=== PATIENT | female | born 1995 | race Caucasian/White ===

== ENCOUNTER 2017-10-10 11:09 | Emergency (ER) | payer OTHER ==
[~2017-10-10] VITALS: Wt 66.5 kg
--- NOTE | 2017-10-10 11:58 | ERD ---
ER Documentation Chief Complaint Chief Complaint HEAVY VAG BLEEDING WITH CLOTS, PT ON MONTHLY PERIOD HPI 22-year-old female, presents to the emergency department, complaining of heavy vaginal bleeding, 4 weeks ago her IUD was removed. Currently, She is using approximately 4 pads per day with mild clots. The symptoms are associated with mild intermittent crampy pain, 3/10. No fever or chills, no dizziness, no lightheadedness, no abdominal pain, no dysuria. ROS All systems reviewed and are negative except as per history of present illness. Medications Home Meds Active Scripts Ibuprofen* (Motrin*) 600 Mg Tab, 600 MG PO Q8, #30 TAB Prov:DANIEL SPENCE MD 10/10/17 Physical Exam Vitals Vital Signs Date Time Temp Pulse Resp B/P Pulse Ox O2 Delivery O2 Flow Rate FiO2 10/10/17 11:13 97.3 84 18 126/76 100 Physical Exam Patient is in no acute distress, vital signs stable. Alert and fully oriented. EYES: PERRLA, EOMI, Sclera and conjunctiva appear normal. EARS: Canals clear, tympanic membranes WNL THROAT: Normal oropharynx. NECK: Supple, No lymphadenopathy. Full ROM without pain or tenderness. HEART: RRR, no rubs, murmurs, clicks or gallops. LUNGS: Clear to auscultation. ABDOMEN: Soft, non-tender without masses or hepatosplenomegaly. EXTREMITIES: No edema bilaterally. BACK: Full ROM, no deformity, normal back exam NEURO: Cranial nerves grossly intact, no motor or sensory deficit Procedures/MDM 25-year-old female, status post IUD removal 4 weeks ago, presents to the emergency department concerned about heavy vaginal bleeding. Vital signs stable , Physical exam unremarkable. Differential diagnosis include but not limited to : , threatened , dysfunctional uterine bleeding. Low suspicion for malignancy. Pertinent Data: test: Negative Physical examination and clinical presentation consistent most likely with dysmenorrhea, changes in the menses most likely related to the recent removal of the IUD. During the ED course the patient remained stable, no new complaints. Results and clinical impression discussed with patient who agrees with management. The patient is stable to be treated outpatient and will be discharged home with a Rx for ibuprofen, some side effects of prescribed medications (headache, rash, nausea, vomiting, diarrhea, drowsiness, habituation , bleeding, hypertension, interactions with other medications) were reviewed. The patient was instructed to follow up with the primary care provider in the next 48h. If symptoms persist, worsen or new symptoms develop, then patient should return to the ED immediately. Instructions explained and given directly by me to the patient in Swedish with acknowledgment and demonstrated understanding. Disclaimer: Inadvertent spelling and grammatical errors are likely due to EHR/ dictation software use and do not reflect on the overall quality of patient care. Also, please note that the electronic time recorded on this note does not necessarily reflect the actual time of the patient encounter. Departure Diagnosis: Primary Impression: Dysmenorrhea Condition: Stable Additional Instructions: Call your primary care doctor TOMORROW for an appointment during the next 1-2 days. See the doctor sooner or return here if your condition worsens before your appointment time. Thank you very much for allowing us to participate in your care. Your health and safety is our top priority at [facility]. Have prescriptions filled and follow precisely the directions on the label. Follow-up with primary care provider during the next 4 days and bring all the information and medications prescribed. If illness has not improved in 2 days, then make an appointment with primary care provider. If the provider is unavailable, return to the Emergency Department immediately. DANIEL SPENCE MD Oct 10, 2017 11:58
[2017-10-10] MEDS ORDERED: IBUP-1542 PO (13:55)
== END 2017-10-10 14:08 | disposition home or self-care (01) ==
LOC: FTE 11:09
DX: N94.6 Dysmenorrhea, unspecified (principal)
CPT/HCPCS: 99283

== ENCOUNTER 2018-03-15 03:48 | Emergency (ER) | END 2018-03-15 06:17 | disposition home or self-care (01) ==

== ENCOUNTER 2018-11-18 10:49 | Emergency (ER) | payer OTHER ==
[~2018-11-18] VITALS: Ht 160 cm; Wt 68.8 kg
[~2018-11-18 10:49] MED LIST: CEPH-443 PO; HYDR-4011 PO; IBUP-1542 PO; PHEN-717 PO
[2018-11-18 10:55] VITALS: Ht 160 cm; Wt 68.8 kg
[2018-11-18] MEDS ORDERED: SOD CHLORIDE 0.9% 1,000 ML IV STA (12:11)
--- NOTE | 2018-11-18 12:41 | ERD ---
ER Documentation Chief Complaint Chief Complaint sent by ob for abdominal pain, 17 weeks HPI This is a 23-year-old female, who presents ED at roughly 17 weeks sent from OB for evaluation. Patient states that she was recently treated for a UTI and she still continues tO HAVE A strong odorous smell TO HER URINE. Patient states she was seen at her doctor's office earlier today and she had a mild fever there but she no longer has a fever here. Patient admits to some back soreness. Patient states that she has been under a lot of stress lately as her work has recently cut her hours and she is concerned about money and being able to make payments. Denies nausea, vomiting, hemoptysis, diarrhea, constipation, melena, hematochezia, vaginal pain, vaginal discharge, and all other symptoms. Denies any current abdominal pain or pelvic discomfort. ROS All systems reviewed and are negative except as per history of present illness. Medications Home Meds Active Scripts Nitrofurantoin Monohyd Macrocr* (Macrobid*) 100 Mg Capsr, 100 MG PO HS for 7 Day s, CAP Prov:CAMI MANRIQUE PA-C 11/18/18 Phenazopyridine Hcl* (Phenazopyridine Hcl*) 200 Mg Tablet, 200 MG PO TID, #6 TAB Prov:IDALIA CHAVIS NP 03/15/18 Cephalexin* (Keflex*) 500 Mg Capsule, 500 MG PO QID for 10 Days, CAP Prov:IDALIA CHAVIS [employer] 03/15/18 Hydrocodone/Acetaminophen ([place] 5-325 Tablet) 1 Each Tablet, 1 TAB PO Q6H PRN for SEVERE PAIN LEVEL 7-10, #20 TAB Prov:IDALIA CHAVIS [employer] 03/15/18 Ibuprofen* (Motrin*) 600 Mg Tab, 600 MG PO Q6H PRN for PAIN AND OR ELEVATED TEMP, #30 TAB Prov:IDALIA CHAVIS [employer] 03/15/18 Ibuprofen* (Motrin*) 600 Mg Tab, 600 MG PO Q8, #30 TAB Prov:DANIEL SPENCE MD 10/10/17 Allergies Allergies: Coded Allergies: No Known Allergy (Unverified , 11/18/18) PMhx/Soc Medical and Surgical Hx: pt denies Medical Hx, pt denies Surgical Hx Hx Alcohol Use: No Hx Substance Use: No Hx Tobacco Use: No Smoking Status: Never smoker FmHx Family History: No diabetes Physical Exam Vitals Vital Signs Date Temp Pulse Resp B/P (MAP) Pulse Ox O2 O2 Flow FiO2 Time Delivery Rate 11/18/18 97.9 87 18 122/63 96 10:55 (82) Physical Exam Const: No acute distress Head: Atraumatic Eyes: Normal Conjunctiva ENT: Normal External Ears, Nose and Mouth. Neck: Full range of motion. No meningismus. Resp: Clear to auscultation bilaterally Cardio: Regular rate and rhythm, no murmurs Abd: Soft, technique, no peritoneal signs, no rigidity, no surgical abdomen, bowel sounds present all 4 quadrants, nontender light deep palpation all 4 quadrants, no suprapubic tenderness Skin: No petechiae or rashes Back: No midline or flank tenderness Ext: No cyanosis, or edema Neur: Awake and alert Psych: Normal Mood and Affect Result Diagram: 11/18/18 1225 11/18/18 1225 Results 24 hrs Laboratory Tests Test 11/18/18 12:25 White Blood Count 7.9 10^3/ul Red Blood Count 4.34 10^6/ul Hemoglobin 12.2 g/dl Hematocrit 35.6 % Mean Corpuscular Volume 82.0 fl Mean Corpuscular Hemoglobin 28.1 pg Mean Corpuscular Hemoglobin Concent 34.3 g/dl Red Cell Distribution Width 12.9 % Platelet Count 222 10^3/UL Mean Platelet Volume 10.0 fl Immature Granulocytes % 0.500 % Neutrophils % 67.0 % Lymphocytes % 24.7 % Monocytes % 6.9 % Eosinophils % 0.5 % Basophils % 0.4 % Nucleated Red Blood Cells % 0.0 /100WBC Immature Granulocytes # 0.040 10^3/ul Neutrophils # 5.3 10^3/ul Lymphocytes # 2.0 10^3/ul Monocytes # 0.5 10^3/ul Eosinophils # 0.0 10^3/ul Basophils # 0.0 10^3/ul Nucleated Red Blood Cells # 0.0 10^3/ul Prothrombin Time 11.5 Sec Prothrombin Time Ratio 0.9 INR International Normalized Ratio 0.83 Activated Partial Thromboplast Time 34.4 Sec Urine Color YELLOW Urine Clarity SLIGHTLY CLOUDY Urine pH 6.0 Urine Specific [place] 1.006 Urine Ketones TRACE mg/dL Urine Nitrite POSITIVE mg/dL Urine Bilirubin NEGATIVE mg/dL Urine Urobilinogen NEGATIVE mg/dL Urine Leukocyte Esterase TRACE Gerard/ul Urine Microscopic RBC 0 /HPF Urine Microscopic WBC 6 /HPF Urine Amorphous Crystals MODERATE /HPF Urine Bacteria MODERATE /HPF Urine Hemoglobin 1+ mg/dL Urine Glucose NEGATIVE mg/dL Urine Total Protein NEGATIVE mg/dl Sodium Level 140 mmol/L Potassium Level 3.8 mmol/L Chloride Level 106 mmol/L Carbon Dioxide Level 22 mmol/L Anion Gap 12 Blood Urea Nitrogen 8 mg/dl Creatinine 0.33 mg/dl Est Glomerular Filtrat Rate mL/min > 60 mL/min Glucose Level 92 mg/dl Calcium Level 9.6 mg/dl Total Bilirubin 0.2 mg/dl Direct Bilirubin 0.00 mg/dl Indirect Bilirubin 0.2 mg/dl Aspartate Amino Transf (AST/SGOT) 31 IU/L Alanine Aminotransferase (ALT/SGPT) 39 IU/L Alkaline Phosphatase 71 IU/L Total Protein 7.5 g/dl Albumin 4.0 g/dl Globulin 3.50 g/dl Albumin/Globulin Ratio 1.14 Beta HCG, Quantitative 92662.0 mIU/ml Current Medications Medications Dose Sig/Jie Start Time Status Last (Trade) Ordered Route PRN Stop Time Admin Dose Reason Admin Sodium 1,000 ml @ Q1H STAT 11/18/18 DC 11/18/18 Chloride 1,000 mls/hr IV 12:11 11/18/18 12:27 13:10 Ceftriaxone 50 ml @ ONCE ONCE 11/18/18 DC 11/18/18 Sodium 100 mls/hr IVPB 14:00 11/18/18 14:27 14:29 Procedures/MDM EKG, MONITORS, & DIAGNOSTIC IMAGING: [place] [address] Radiology Main Line: [phone] DIAGNOSTIC IMAGING REPORT Patient: MARIA MONTANO : 1995 Age: 23 Sex: F MR #: [id number] DOS: 11/18/18 1211 Ordering MD: CAMI MANRIQUE PA-C Location: [facility]TE Room/Bed: PROCEDURE: US OB. CLINICAL INDICATION: Size and dates TECHNIQUE: Multiple sonographic images of the pelvis and gravid uterus were obtained. The images were reviewed on a PACS workstation. COMPARISON: No prior studies are available for comparison. FINDINGS: Gestation: Single live intrauterine gestation. Cardiac activity: 137 beats per minute. Presentation: Vertex. Placenta: Location: posterior Appearance: No previa or abruption. MVP = 5.3 cm Measurements: BPD = 4.3 cm, 18 weeks and 6 days HC = 15.2 cm, 18 weeks and 2 days AC = 13.1 cm, 18 weeks and 4 days FL = 2.7 cm, 18 weeks and 1 day Gestational Age: AUA estimated gestational age: 18 weeks 3 days AUA estimated date of delivery: 04/18/19 The EFW = 238 g. The four-chamber heart, intracranial contents, stomach, kidneys, bladder, nose and lips, and cord insertion are visualized. RPTAT: AA IMPRESSION: Single live intrauterine gestation of 18 weeks 3 days by ultrasound criteria. .Bill Mueller MD, MD Date Time Electronically viewed and signed by .Bill Mueller MD, MD on 11/18/2018 13:21 .S/ CC: CAMI MANRIQUE PA-C [id number] LAB INTERPRETATION: CBC shows no evidence of hemorrhage or infection Chemistry shows no evidence of significant electrolyte abnormalities or renal insufficiency Liver function test shows no evidence of acute biliary or hepatic dysfunction Coagulation study showed no concerning coagulopathy [facility] [id number] Urinalysis remarkable for 6 WBC, trace leukocyte esterase and positive nitrite Blood type O+ Cardiac biomarkers show no evidence of acute myocardial injury or coronary ischemia BNP shows no evidence of acute congestive heart failure and/or volume overload ER COURSE: The patient was given IV normal saline The medication was well tolerated and the patient reports improvement in symptom s. The patient was stable throughout ED course. I kept the patient and/or family informed of laboratory and diagnostic imaging results throughout the emergency room course. The patient was promptly evaluated and a treatment plan was devised based on H&P and other data. This plan was discussed with the patient who agreed and had no further questions or concerns prior to discharge. MEDICAL DECISION MAKING: This is a 23-year-old female, who presents ED at roughly 17 weeks sent from OB for evaluation. Patient states that she was recently treated for a UTI and she still continues tO HAVE A strong odorous smell TO HER URINE. Patient states she was seen at her doctor's office earlier today and she had a mild fever there but she no longer has a fever here. Patient admits to some back soreness. Ultrasound was ordered to rule out placenta previa, placental abruption, premature rupture of brains and to check heart tones fetus. Patient is blood type O+ and does not require any RhoGam. CBC is unremarkable with no signs of anemia or hemorrhage. Urinalysis does show WBC, trace leukocyte esterase and positive nitrite. Will proceed to treat patient for UTI. Patient was given 1 g of IV ceftriaxone in the emergency department. There is no evidence of pyelonephritis given that patient has no CVA tenderness, no fevers in the emergency department and no nausea or vomiting. We will also send for urine culture. Patient is hemodynamically stable. Urinalysis is unremarkable. Ultrasound shows a closed competent cervix with no appearance of central previa or abruption. Ultrasound shows a single intrauterine gestation with a heart rate of 137 bpm. Advised patient follow-up with her KINESIOLOGIST specialist in the next 48 hours. At this time there is no KINESIOLOGIST emergency. Return to ED with any worsening symptoms. DISPOSITION PLAN: We discussed follow up with the patient's primary care doctor within 24 to 48 hours. Patient counseled regarding my diagnostic impression and care plan. Prior to discharge all questions answered. Pt agrees with treatment plan and understands strict return precautions. Precautionary instructions provided including instructions to return to the ER if not improving or for any worsening or changing symptoms or concerns. SPECIALIST FOLLOW UP RECOMMENDED: None Patient has been advised to follow up with primary care in 1-2 days. Disclaimer: Inadvertent spelling and grammatical errors are likely due to EHR/dictation software use and do not reflect on the overall quality of patient care. Also, please note that the electronic time recorded on this note does not necessarily reflect the actual time of the patient encounter. Departure Diagnosis: Primary Impression: UTI (urinary tract infection) in in second trimester Condition: Stable Patient Instructions: Adapting to : Second Trimester, Understanding Urinary Tract Infections (UTIs) Referrals: [facility] KINESIOLOGIST REFERRAL LIST Additional Instructions: Patient advised to return to the ED immediately for new or worsening symptoms. Patient advised to follow up with primary care provider in the next 24-48 hours. Patient verbalized understanding and agrees with treatment plan and course of action. If patient has no primary care they may follow up with one of the community clinics listed on the following page or one of the options listed below [facility] [address] [place] [id number] or [facility] [id number] [place] [id number] or [facility] [address] [place] [address] CAMI MANRIQUE PA-C Nov 18, 2018 12:41
[2018-11-18] MEDS ORDERED: CEFTRIAXONE 1 GM/50 ML (PMX) 50 ML IVPB ONE (14:00)
[2018-11-18] MEDS ORDERED: NITR-58 PO (14:46)
[2018-11-18 15:05] VITALS: BP 103/59; PULSE 76
== END 2018-11-18 15:06 | disposition home or self-care (01) ==
LOC: FTE 10:49
DX: O23.42 Unspecified infection of urinary tract in pregnancy, second trimester (principal); R10.9 Unspecified abdominal pain; Z3A.18 18 weeks gestation of pregnancy
CPT/HCPCS: 36415; 76805; 80053; 81001; 84702; 85025; 85610; 85730; 86900; 86901; 87086; 96374; J0696; J7030; Z7502

== ENCOUNTER 2019-02-23 20:35 | Outpatient (CLI) | payer OTHER ==
[~2019-02-23] VITALS: Ht 154.9 cm; Wt 76.8 kg
[~2019-02-23 20:35] MED LIST changes: +NITR-58 PO
[2019-02-23] MEDS ORDERED: PREN-93 PO (21:15)
[2019-02-23 21:16] VITALS: Ht 154.9 cm; Wt 76.8 kg
[2019-02-23 21:18] VITALS: BP 110/55; PULSE 92; RESP 20
--- NOTE | 2019-02-23 22:53 | PN ---
Triage Information Date/Time February 23, 2019 Reason for visit: Uterine contractions Weeks of Gestation 32w 4d /Para 2/1 Diabetes: none Hypertention: none Additional information Pt feels some lower abdominal and back pain about every 30 minutes since 1730. No bleeding or leaking. PMHx: Cholestasis of ; on Actigall BID. POBHx: at term, 9# 8 oz. PSHx: none. NKDA. Objective Vital Signs Date Temp Pulse Resp B/P (MAP) Pulse Ox O2 O2 Flow FiO2 Time Delivery Rate 02/23/19 98.1 92 20 110/55 Room Air 21:18 (73) Heart Rate: 130's Heart Rate Comments Accels to 160 bpm. No decels. Contractions: >10 Minutes Apart (q 20 to 30 minutes, mild) Results/Medications Results 24 hrs Laboratory Tests Test 02/23/19 21:00 Urine Color YELLOW Urine Clarity CLOUDY A Urine pH 7.0 Urine Specific Bertha 1.013 Urine Ketones NEGATIVE Urine Nitrite POSITIVE A Urine Bilirubin NEGATIVE Urine Urobilinogen NEGATIVE Urine Leukocyte Esterase 2+ H Urine Microscopic RBC > 182 H Urine Microscopic WBC 108 H Urine Squamous Epithelial Cells FEW Urine Bacteria MODERATE Urine Mucus MODERATE Urine Hemoglobin 3+ H Urine Glucose NEGATIVE Urine Total Protein 2+ H Imaging Results Cervical length 4.1 cm and closed. Disposition: Discharge Assessment/Plan A: IUP at 32w 4d. False labor. UTI. Cholestasis. P: P.O. hydration. Pt may get one dose of Macrobid while here then will be sent home with a Rx for 100 BID x 7 days. PTL precautions reviewed. Pt to continue her Actigall and may increase to TID x 1 week. ANATOLY ROQUE MD Feb 23, 2019 22:53
[2019-02-23] MEDS ORDERED: NITROFURANTOIN (SR) 100 MG CAP PO ONE (23:00)
--- NOTE | 2019-02-23 23:19 | TRIAGE ---
OB Triage Datetime Report Generated by CPN: 02/23/2019 23:19 Datetime: 02/23/2019 23:05 Stage of : OB Triage Datetime: 02/23/2019 22:45 Stage of : OB Triage Datetime: 02/23/2019 22:30 Stage of : OB Triage Labor Evaluation Frequency: Occasional Monitor Mode: External Resting Tone [place]: Relaxed Heart Rate FHR Baseline Rate: 125 Monitor Mode: External US Variability: Moderate 6-25 bpm Accelerations: 15X15 Decelerations: None Category: Category I Pain Assessment Pain Scale: 3 Pain Presence: Intermittent Pain Type: Contraction Pain Location: Abdomen Pain Relief Measures: Comfort Measures Datetime: 02/23/2019 21:23 Stage of : OB Triage Datetime: 02/23/2019 20:56 Stage of : OB Triage Assessment Type: Triage Maternal Assessment Level of Consciousness: Fully Conscious DTR's/Clonus: DTRs 2+; No Clonus Headache: Denies Blurred Vision: No Respiratory Effort: Unlabored; Regular Rhythm; Equal Expansion Breath Sounds, Left: Clear and Equal Breath Sounds, Right: Clear and Equal Nausea/Vomiting: Denies RUQ Epigastric Pain: Denies Lower Extremities Edema: None Degree: None Upper Extremities Edema: None Degree: None Facial Edema: None Temperature Route: Oral Fall Risk Assessment History of Falling: (0) No Secondary Diagnosis: (0) No Ambulatory Aid: (0) Bedrest/Nurse Assist IV Therapy: (0) No Gait: (0) Normal/Bedrest/Immobile Mental Status: (0) Oriented to Own Ability Fall Score: 0 Fall Risk Score Definition: No Risk: No action required Pain Assessment Pain Scale: 3 Pain Presence: Intermittent Pain Type: Cramping; Contraction; Ache Pain Location: Abdomen; Back Pain Relief Measures: Comfort Measures Datetime: 02/23/2019 20:45 Time of Arrival: 02/23/2019 20:30 EGA: 32.4 Arrived By: Wheelchair Arrived From: Home Chief Complaint: Back pain _ lower abdominal pain Movement: Present Contractions: Irregular Time Contractions Began: 02/23/2019 17:30 Contractions: [id number] Rupture of Membranes: Denies Vaginal Bleeding: None Vaginal Discharge: Denies Abdominal Trauma: Not Applicable Patient Complaints: Contractions; Cramping; Back Pain Time Provider Notified: 02/23/2019 21:23 Provider Notified: W[place]o Initial Plan: VS, EFM, UA, Urine culture, CL
== END 2019-02-23 23:15 | disposition home or self-care (01) ==
LOC: OBT 20:35 → L-D 20:36 → OBT 22:30 → L-D 22:30 → OBT 23:15
PROVIDERS: ATTEND Specialist
DX: O47.03 False labor before 37 completed weeks of gestation, third trimester (principal); O23.43 Unspecified infection of urinary tract in pregnancy, third trimester; O26.613 Liver and biliary tract disorders in pregnancy, third trimester; K83.1 Obstruction of bile duct; Z3A.32 32 weeks gestation of pregnancy
CPT/HCPCS: 76817; 81001; 87086; Z7500; Z7610; G0463

== ENCOUNTER 2019-04-01 09:30 | Inpatient (IN) | payer OTHER ==
[~2019-04-01] VITALS: Ht 152.4 cm; Wt 79.7 kg
[~2019-04-01 09:30] MED LIST changes: -CEPH-443 PO; -HYDR-4011 PO; -IBUP-1542 PO; -PHEN-717 PO; +PREN-93 PO
[2019-04-01] MEDS ORDERED: LIDOCAINE 1% (MPF) 30 ML INJ INJ PRN (10:30)
[2019-04-01] MEDS ORDERED: MISOPROSTOL 200 MCG TAB PR PRN (10:30)
[2019-04-01] MEDS ORDERED: IBUPROFEN 600 MG TAB PO PRN (10:30)
[2019-04-01] MEDS ORDERED: METHYLERGONOVINE 0.2 MG INJ IM PRN (10:30)
[2019-04-01] MEDS ORDERED: OXYTOCIN 30 UNITS/LR 500 ML IV PRN ×2 (10:30→11:30)
[2019-04-01] MEDS ORDERED: OXYTOCIN 30 UNITS/LR 500 ML IV SCH ×2 (10:30)
[2019-04-01] MEDS ORDERED: BUTORPHANOL 2 MG INJ IV PRN ×2 (10:30)
[2019-04-01] MEDS ORDERED: CARBOPROST 250 MCG INJ IM PRN (10:30)
[2019-04-01 10:36] VITALS: BP 126/74; PULSE 85; RESP 17
[2019-04-01] MEDS ORDERED: URSO300C3 PO (10:40)
[2019-04-01] MEDS ORDERED: BETAMET NA PHOS/AC(6 MG/ML) 2 ML INJ SYG IM ONE (11:30)
[2019-04-01] MEDS: LACTATED RINGER'S 1,000 ML IV SCH ×2 (11:43→19:26)
[2019-04-01] MEDS: MISOPROSTOL 50 MCG CAPSULE PO PRN ×3 (11:59→22:43)
[2019-04-01] MEDS: URSODIOL 300 MG CAP PO SCH ×2 (15:13→21:01)
[2019-04-02] MEDS: LACTATED RINGER'S 1,000 ML IV SCH ×3 (02:37→10:25)
[2019-04-02] MEDS: MISOPROSTOL 50 MCG CAPSULE PO PRN (03:32)
--- NOTE | 2019-04-02 09:21 | HP ---
Date/Time of Note Date/Time of Note DATE: 04/02/19 TIME: 09:18 OB - History Hx of Present Free Text/Dictation 24 YO with EDC 04/23/2019 with IUP at 37 weeks. Admitted for IOL due to Cholestasis of . had Cytotec. cervix is now 50% 2 cm. AROM done Care: Good Care Ultrasounds: Normal mid trimester US Obstetrical Complications: Other (cholestasis of ) Medical Complications: None Past Family/Social History * Past Medical, Surgical, Family and Obstetric Histories reviewed from chart. OB Admission Exam Vital Signs Vital Signs Vital Signs Date Temp Pulse Resp B/P (MAP) Pulse Ox O2 O2 Flow FiO2 Time Delivery Rate 04/01/19 97.9 85 17 126/74 Room Air 10:36 (91) Physical Exam HEENT: WNL Heart: Rhythm Normal Lungs: Clear, Equal Abdomen: WNL Extremities: Normal Reflexes: Normal Cervical Dilatation: 2cm Effacement: 50% Station: -2 Last 72 hours Lab Results CBC & BMP 04/01/19 11:40 OB Assessment/Plan Other Assessment: cholestasis of Induction Method: per Misoprostol Protocol YEN TALBERT MD April 02, 2019 09:21
[2019-04-02] MEDS: URSODIOL 300 MG CAP PO SCH ×3 (10:27→21:07)
--- NOTE | 2019-04-02 11:46 | PREAC ---
Date/Time of Note Date/Time of Note DATE: 04/02/19 TIME: 11:46 Anesthesia Eval and Record Evaluation Time Pre-Procedure Interview DATE: 04/02/19 TIME: 11:46 Age 24 Sex female NPO: 8 hrs Preoperative diagnosis labor pain Planned procedure epidural Past Medical History Past Medical History: Includes : Gestational age: (37) Surgery & Anesthesia Issues No known issue Meds Anticoagulation: No Beta Sissy within 24 hr: No Reason Beta Sissy not given: Pt. not on B-Sissy Reported Medications Ursodiol* (Ursodiol*) 300 Mg Capsule, 300 MG PO TID, CAP 04/01/19 Vit No.124/Iron/FA ( Vitamin Tablet) 1 Each Tablet, 1 EACH PO DAILY, TAB 02/23/19 Discontinued Scripts Nitrofurantoin Monohyd Macrocr* (Macrobid*) 100 Mg Capsr, 100 MG PO HS for 7 Days, CAP Prov:CAMI MANRIQUE PA-C 11/18/18 Current Medications Lactated Ringer's 1,000 ml @ 125 mls/hr Q8H IV Last administered on 04/02/19at 10:25; Admin Dose 125 MLS/HR; Start 04/01/19 at 10:15 Butorphanol Tartrate (Stadol) 1 mg Q2H PRN IV .PAIN SCALE 1-5; Start 04/01/19 at 10:30 Butorphanol Tartrate (Stadol) 2 mg Q2H PRN IV .PAIN SCALE 6-10; Start 04/01/19 at 10:30 Lidocaine (Xylocaine 1% (Mpf)) 30 ml ONCE PRN INJ .EPISIOTOMY; Start 04/01/19 at 10:30 Oxytocin/Lactated Ringer's 500 ml @ 500 mls/hr ONCE POST IV ; Start 04/01/19 at 10:30 Oxytocin/Lactated Ringer's 500 ml @ 125 mls/hr POST IV ; Start 04/01/19 at 10:30 Ibuprofen (Motrin) 600 mg ONCE PRN PO .PAIN 1-5; Start 04/01/19 at 10:30 Oxytocin/Lactated Ringer's 500 ml @ 0 mls/hr ONCE PRN IV .VAGINAL BLEEDING; Sta rt 04/01/19 at 10:30 Methylergonovine Maleate (Methergine) 0.2 mg ONCE PRN IM .VAGINAL BLEEDING; Sta rt 04/01/19 at 10:30 Carboprost Tromethamine (Hemabate) 250 mcg ONCE PRN IM .VAGINAL BLEEDING; Start 04/01/19 at 10:30 Misoprostol (Cytotec) 1,000 mcg ONCE PRN [place] .VAGINAL BLEEDING; Start 04/01/19 at 10:30 Misoprostol (Cytotec 50 Mcg Capsule) 50 mcg PRN PRN PO LABOR INDUCTION Last administered on 04/02/19at 03:32; Admin Dose 50 MCG; Start 04/01/19 at 11:30 Oxytocin/Lactated Ringer's 500 ml @ 0 mls/hr FOR INDUCTION PRN IV LABOR INDUCTION; Start 04/01/19 at 11:30 Ursodiol (Actigall) 300 mg TID PO Last administered on 04/02/19at 10:27; Admin Dose 300 MG; Start 04/01/19 at 13:00 Meds reviewed: Yes Allergies Coded Allergies: No Known Allergy (Unverified , 04/01/19) Allergies Reviewed: Yes Labs/Studies Labs Reviewed: Reviewed by anesthesiologist Result Diagram: 04/01/19 1140 test: Positive Studies: ECG (n/a), CXR (n/a) Pre-procedure Exam Last vitals Vital Signs Date Temp Pulse Resp B/P (MAP) Pulse Ox O2 O2 Flow FiO2 Time Delivery Rate 04/01/19 97.9 85 17 126/74 Room Air 10:36 (91) Airway: Adequate mouth opening Mallampati: Mallampati I Teeth: Normal Lung: Normal Heart: Normal ASA Physical Status ASA physical status: 2 Emergency: None Planned Anesthetic Neuraxial: Epidural Planned Pain Management Epidural Pre-operative Attestations Prior to commencing anesthesia and surgery, the patient was re-evaluated, there was verification of: *The patient's identity *The results of appropriate recent lab work and preoperative vital signs *The above evaluation not changing prior to induction *Anesthetic plan, risk benefits, alternative and complications discussed with patient/family; questions answered; patient/family understands, accepts and wishes to proceed. ANTONIO JIMENEZ MD April 02, 2019 11:46
[2019-04-02] MEDS ORDERED: FENTAnyl 2MCG/ML-ROPIV 0.2% 100 ML BAG EPI SCH (12:00)
[2019-04-02] MEDS ORDERED: DIPHENHYDRAMINE 50 MG INJ IV PRN ×2 (12:00→15:00)
[2019-04-02] MEDS ORDERED: NALOXONE (0.4 MG/ML) INJ IV PRN (12:00)
[2019-04-02] MEDS ORDERED: HYDROmorphONE 0.5 MG/0.5 ML SYG IV PRN (12:00)
[2019-04-02] MEDS ORDERED: ONDANSETRON 4 MG INJ IV PRN ×2 (12:00→15:00)
[2019-04-02] MEDS ORDERED: MAGNESIUM SULFATE 4 GM/100 ML 0 ML ONE (13:04)
--- NOTE | 2019-04-02 14:59 | LDN ---
Date/Time of Note Date/Time of Note DATE: 04/02/19 TIME: 14:58 Delivery Summary 24 YO with IUP at 37 weeks. s/p of viable . After delivery of the head the rest of the body delivered easily. I did not apply excessive traction. Placenta delivered spontaneously and intact. evaluation of the placenta confirmed intact placenta. Uterus was firm with cervix closed on exam Placenta Delivered: Spontaneously Meconium: none Episiotomy: No Perineal laceration: 0 Anesthesia type: Epidural Estimated blood loss: 300 Sponge & Needle done & correct: Yes All needle counts correct: Yes Any foreign bodies felt in the: No Delivery Information Sex Infant Sex: male Apgars 1 Minute: 9 5 Minute: 9 Suctioning Nose & mouth suctioned at enio: No Delee suction performed: No Umbilical Cord Umbilical cord with: 3 Vessels Cord presentations: no nuchal cord Cord Blood was obtained: Yes Mother & Baby Disposition Disposition Mom & Baby to Maternity; Good: Yes YEN TALBERT MD April 02, 2019 14:59
[2019-04-02] MEDS ORDERED: WITCH HAZEL/GLYCERIN PAD PR PRN (15:00)
[2019-04-02] MEDS ORDERED: OXYTOCIN 30 UNITS/LR 500 ML IV PRN (15:00)
[2019-04-02] MEDS ORDERED: LANOLIN HPA 1 PKT TOP PRN (15:00)
[2019-04-02] MEDS ORDERED: ONDANSETRON 4 MG TAB PO PRN (15:00)
[2019-04-02] MEDS ORDERED: HYDROCODONE/APAP (5/325) TAB PO PRN ×2 (15:00)
[2019-04-02] MEDS ORDERED: DIBUCAINE 1% 30 GM OINT TOP PRN (15:00)
[2019-04-02] MEDS ORDERED: SENNA/DOCUSATE NA (8.6MG/50MG) TAB PO PRN (15:00)
[2019-04-02] MEDS ORDERED: BENZOCAINE 20% 56 ML SPRAY TOP PRN (15:00)
[2019-04-02] MEDS ORDERED: DIPHENHYDRAMINE 25 MG CAP PO PRN (15:00)
[2019-04-02] MEDS ORDERED: CARBOPROST 250 MCG INJ IM PRN (15:00)
[2019-04-02] MEDS ORDERED: MAGNESIUM HYDROXIDE 30ML CUP PO PRN (15:00)
[2019-04-02] MEDS ORDERED: MISOPROSTOL 200 MCG TAB PR PRN (15:00)
[2019-04-02] MEDS ORDERED: NA PHOSPHATE/BIPHOS 133 ML ENEMA PR PRN (15:00)
--- NOTE | 2019-04-02 17:34 | PAC ---
Date/Time of Note Date/Time of Note DATE: 04/02/19 TIME: 17:33 Post-Anesthesia Notes Post-Anesthesia Note Last documented vital signs Vital Signs Date Temp Pulse Resp B/P (MAP) Pulse Ox O2 O2 Flow FiO2 Time Delivery Rate 04/01/19 97.9 85 17 126/74 99 Room Air 16:36 (91) Activity: WNL Respiratory function: WNL Cardiovascular function: WNL Mental status: Baseline Pain reasonably controlled: Yes Hydration appropriate: Yes Nausea/Vomiting absent: No ANTONIO JIMENEZ MD April 02, 2019 17:34
[2019-04-02 18:35] VITALS: BP 131/69; PULSE 69; RESP 18
[2019-04-02] MEDS: LACTATED RINGER'S 1,000 ML IV* SCH ×2 (18:50→22:01)
[2019-04-02] MEDS: IBUPROFEN 600 MG TAB PO SCH ×2 (18:50→23:41)
[2019-04-02 20:00] VITALS: BP 117/64; PULSE 78; RESP 21
[2019-04-02] MEDS: SENNA/DOCUSATE NA (8.6MG/50MG) TAB PO SCH (21:06)
[2019-04-03 03:25] VITALS: BP 91/50; PULSE 73; RESP 19
[2019-04-03] MEDS: IBUPROFEN 600 MG TAB PO SCH ×3 (05:42→17:40)
[2019-04-03] MEDS: LACTATED RINGER'S 1,000 ML IV* SCH ×2 (06:59→14:59)
[2019-04-03] MEDS: SENNA/DOCUSATE NA (8.6MG/50MG) TAB PO SCH ×2 (09:14→21:09)
[2019-04-03] MEDS: URSODIOL 300 MG CAP PO SCH ×3 (09:14→21:09)
[2019-04-03 09:19] VITALS: BP 99/50; PULSE 67; RESP 18
[2019-04-03 11:24] VITALS: BP 100/54; PULSE 76; RESP 20
[2019-04-03 20:00] VITALS: BP 97/54; PULSE 77; RESP 17
[2019-04-04] VITALS: BP 104/61
[2019-04-04] MEDS: IBUPROFEN 600 MG TAB PO SCH ×3 (00:17→12:13)
[2019-04-04 04:00] VITALS: BP 99/53; PULSE 79; RESP 17
[2019-04-04 08:30] VITALS: BP 97/51; PULSE 85; RESP 18
[2019-04-04] MEDS ORDERED: MEASLES,MUMPS,RUBELLA VACCINE INJ SC* ONE (09:00)
[2019-04-04] MEDS: SENNA/DOCUSATE NA (8.6MG/50MG) TAB PO SCH ×2 (09:00→09:41)
[2019-04-04] MEDS ORDERED: VARICELLA VACCINE LIVE/PF 1,350 UNIT/0.5 ML ML SC* ONE (09:00)
[2019-04-04] MEDS ORDERED: DIPHTH/TET/ACEL PERTUSS (ADULT) 0.5 ML VIAL IM* ONE (09:00)
[2019-04-04] MEDS: URSODIOL 300 MG CAP PO SCH ×2 (09:41→12:35)
--- NOTE | 2019-04-04 16:49 | DS ---
Date/Time of Note Date/Time of Note DATE: 04/04/19 TIME: 16:47 Obstetrical Discharge Record Final Diagnosis Final Diagnosis: Term delivered Other Final Diagnosis day #2 Status post Patient stable and afebrile Vital signs stable Hematology - 72 Hrs Test 04/03/19 07:00 Hematocrit 32.6 % (37.0-47.0) L Hemoglobin 10.5 g/dl (12.0-16.0) L Mean Corpuscular Hemoglobin 25.9 pg (29.0-33.0) L Mean Corpuscular Hemoglobin Concent 32.2 g/dl (32.0-37.0) Mean Corpuscular Volume 80.5 fl (82.0-101.0) L Mean Platelet Volume 13.0 fl (7.4-10.4) H Platelet Count 89 10^3/UL (140-415) L Red Blood Count 4.05 10^6/ul (4.20-5.40) L Red Cell Distribution Width 15.5 % (11.5-14.5) H White Blood Count 9.8 10^3/ul (4.8-10.8) # Abdomen soft, fundus firm Perineum intact Extremities nontender Assessment and plan Patient stable and doing well Plan to discharge home Patient instructed to follow-up with her own [facility] in 2 and 6 weeks Vaginal Delivery Obstetrical Delivery: Spontaneous Condition on Discharge Physical Assessment Last Vitals: VS - Last 72 Hours, by Label Date Temp Pulse Resp B/P (MAP) Pulse Ox O2 O2 Flow FiO2 Time Delivery Rate 04/04/19 97.9 85 18 97/51 (66) Room Air 08:30 04/04/19 98.3 79 17 99/53 (68) Room Air 04:00 04/04/19 98.6 104/61 Room Air 00:00 (75) 04/03/19 98.7 77 17 97/54 (68) Room Air 20:00 04/03/19 76 20 100/54 Room Air 11:24 (69) 04/03/19 97.8 67 18 99/50 (66) Room Air 09:19 04/03/19 97.9 73 19 91/50 (64) Room Air 03:25 04/02/19 98.9 78 21 117/64 Room Air 20:00 (81) 04/02/19 99.9 69 18 131/69 Room Air 18:35 (89) Voiding: Yes Bowel Movement: Yes Breast: Soft, non-tender Fundus: Firm Calf Tenderness: No Patient Condition: Good Copies To: CC: YEN TALBERT MD ; TREY EID MD April 04, 2019 16:49
--- NOTE | 2019-04-05 17:33 | DELSUM ---
Delivery Summary A-C Datetime Report Generated by CPN: 04/05/2019 17:32 DELIVERY PERSONNEL Perishable Freight Inspector: Susy Xiong MATERNAL INFORMATION Delivery Anesthesia: Epidural Medications in Delivery: LR WITH 30 UNITS PITOCIN Delivery QBL (ml): 300 Placenta Cultured: No Maternal Complications: Other Other Maternal Complications: CHOLESTASIS LABOR SUMMARY EDC: 04/23/2019 00:00 No. Babies in Womb: 1 Attempted: No Labor Anesthesia: Epidural LABOR INFORMATION Reason for Induction: Not Applicable Reason for Induction- Other: CHOLESTASIS Onset of Labor: 04/02/2019 02:42 Complete Dilatation: 04/02/2019 13:36 Cervical Ripening Agents: Cytotec @ 50 MCG Oxytocin: N/A Group B Beta Strep: Negative Antibiotics # of Doses: 0 Steroids Given: None Reason Steroids Not Administered: Not Applicable MEMBRANES Membranes Rupture Method: Artificial Rupture of Membranes: 04/02/2019 07:57 Length of Rupture (hr): 6.45 Amniotic Fluid Color: Clear Amniotic Fluid Amount: Small Amniotic Fluid Odor: Normal STAGES OF LABOR Stage 1 hr: 10 Stage 1 min: 54 Stage 2 hr: 0 Stage 2 min: 48 Stage 3 hr: 0 Stage 3 min: 1 Total Time in Labor hr: 11 Total Time in Labor min: 43 VAGINAL DELIVERY Episiotomy: None Laceration Extension: N/A Laceration Type: None Laceration Repair: No Initial Vag Sponge Count: 10 Final Vag Sponge Count: 10 Initial Vag Sharps Count: 1 Final Vag Sharps Count: 1 Sponge Count Correct: Yes Sharps Count Correct: Yes BABY A INFORMATION Infant Delivery Date/Time: 04/02/2019 14:24 Method of Delivery: Vaginal Born in Route : No : N/A Forceps: N/A Vacuum Extraction: N/A Shoulder Dystocia : N/A SHOULDER DYSTOCIA BABY A Infant Delivery Date/Time: 04/02/2019 14:24 PRESENTATION/POSITION BABY A Presentation: Cephalic Cephalic Presentation: Vertex Vertex Position: Left Occipital Anterior Breech Presentation: N/A PLACENTA INFORMATION BABY A Placenta Delivery Time : 04/02/2019 14:25 Placenta Method of Delivery: Spontaneous Placenta Status: Delivered SCORES BABY A Heart Rate 1 min: >100 bpm Resp Effort 1 min: Good Cry Reflex Irritability 1 min: Cough/Sneeze/Pulls Away Muscle Tone 1 min: Active Motion Color 1 min: Body [place], Extremit Blue Resuscitation Effort 1 min: Tactile Stimulation SCORE 1 MIN: 9 Heart Rate 5 min: >100 bpm Resp Effort 5 min: Good Cry Reflex Irritability 5 min: Cough/Sneeze/Pulls Away Muscle Tone 5 min: Active Motion Color 5 min: Body [place], Extremit Blue Resuscitation Effort 5 min: Tactile Stimulation SCORE 5 MIN: 9 INFORMATION BABY A Gestational Age at Delivery: 37.0 Gestational Status: Early Term- 37- 38.6 Weeks Infant Outcome : Liveborn Condition : Stable Infant Sex: Male IDENTIFICATION/MEDS BABY A ID Band Number: [id number] ID Band Location: Right Leg; Left Arm Sensor Applied: Yes Sensor Number: [id number] Sensor Location : Cord Clamp Vitamin K Given : Not Given Erythromycin Given: Not Given WEIGHT/LENGTH BABY A Birthweight (gm): 3465 Weight (lb): 7 Infant Weight (oz): 10 Infant Length (in): 19.00 Infant Length (cm): 48.26 CORD INFORMATION BABY A No. Cord Vessels: 3 Nuchal Cord : Around Neck x1, Loose Cord Blood Taken: Yes Suction: Mouth; Nose ASSESSMENT BABY A Complications: None Physical Findings at Delivery: Within Normal Limits Respirations: Appears Normal Machine Cementer/ALS Called : No Transferred To: Remains with Mother
== END 2019-04-04 15:15 | disposition home or self-care (01) | DRG 805 ==
LOC: L-D 10:00 → PP1 04-02 18:30
PROVIDERS: ADMIT Specialist; ATTEND Specialist
PROC: 10E0XZZ Delivery of Products of Conception, External Approach (ICD-10-PCS; principal; 2019-04-02)
DX: O26.62 Liver and biliary tract disorders in childbirth (principal); K83.1 Obstruction of bile duct; Z37.0 Single live birth; Z3A.37 37 weeks gestation of pregnancy
CPT/HCPCS: 62322; 76815; 85025; 85610; 85730; 86592; 86850; 86900; 86901; 87340; 90716; J0702; J2590; J3010; J7120